=== PATIENT | female | born 1965 | race Caucasian/White ===

== ENCOUNTER 2020-02-21 12:40 | Emergency (ER) | payer OTHER ==
[2020-02-21 12:47] VITALS: BP 117/75
--- NOTE | 2020-02-21 13:06 | ED Physician Documentation ---
History of Present Illness - Stated complaint Stated Complaint: SORE THROAT - Chief complaint Chief Complaint: Heent - History obtained from History obtained from: Patient - History of Present Illness Timing: Prior to arrival, How many days ago (3) Pain level max: 0 Pain level now: 0 - Additonal information Additional information: 54-year-old female presents to the emergency department with chief complaint of sore throat congestion fatigue and malaise. She reports that over the last 2 weeks she has [place] extensively [place] [facility] [place] She denies any cough or fevers. No chest pain or dyspnea. Denies loss of taste or smell. No vomiting or diarrhea. She has no tonsillar exudate. She has normal phonation and swallow. She reports that she is extremely stressed and just wants to make sure she is okay. She denies any pertinent past medical history. She is an occasional tobacco or vape user. Denies alcohol. Review of Systems Constitutional: denies: Fever, Chills Nose: reports: Congestion, Sinus pressure / pain. denies: Foreign Body Throat: reports: Sore throat. denies: Swollen tonsils Cardiac: denies: Chest pain / pressure, Palpitations Respiratory: denies: Dyspnea, Cough, Hemoptysis, Wheezing GI: denies: Abdominal Pain : denies: Dysuria, Frequency, Hesitancy Skin: denies: Rash, Lesions Musculoskeletal: denies: Neck pain, Back pain PD PAST MEDICAL HISTORY - Past Medical History Past Medical History: Yes Cardiovascular: None Respiratory: None Neuro: None Endocrine/Autoimmune: None GI: None [employer]: None : None HEENT: None Psych: None Musculoskeletal: None Derm: None - Past Surgical History Past Surgical History: No - Allergies Allergies/Adverse Reactions: Allergies Allergy/AdvReac Type Severity Reaction Status Date / Time No Known Drug Allergies Allergy Verified 02/21/20 12:47 - Social History Does the pt smoke?: No Smoking Status: Never smoker - Immunizations Immunizations are current?: Yes PD ED PE NORMAL - General General: Alert and oriented X 3, No acute distress - HEENT HEENT: Atraumatic, PERRL, EOMI, Ears normal, Moist mucous membranes, Pharynx benign, Dentition benign - Neck Neck: Supple, no meningeal sign, No bony TTP, No adenopathy, No JVD - Cardiac Cardiac: RRR, No murmur - Respiratory Respiratory: No respiratory distress, Clear bilaterally - Abdomen Abdomen: Normal bowel sounds, Non tender - Back Back: No CVA TTP, No spinal TTP - Derm Derm: Normal color, Warm and dry, No rash - Extremities Extremities: No deformity - Neuro Neuro: Alert and oriented X 3, registered nurse ambulatory 2-12 intact, No motor deficit Results - Vitals Vitals: Vital Signs - 24 hr 02/21/20 12:44 Temperature 36.6 C Heart Rate 67 Respiratory 18 Rate Blood Pressure 117/75 O2 Saturation 99 Oxygen O2 Source Room air PD MEDICAL DECISION MAKING - ED course Complexity details: d/w patient ED course: 54-year-old female with a history of recent extensive travel to [facility] [place] with 3 days of sinus pressure, congestion, feeling of fatigue and malaise. - Her exam is entirely benign. She has no fever and her vital signs are normal. She has no tonsillar exudate. My suspicion for strep pharyngitis is very low and will defer testing at this time. - There is no fever, purulent drainage or significant sinus tenderness. My suspicion for bacterial sinusitis is very low. I advised saline nasal spray or nasal wash to help with congestion versus an [id number] decongestant. -I discussed with patient my concern about extensive travel to an area where COVID-19 is endemic. She does not feel that she has COVID-19 but she agrees to testing. I have advised her to be in quarantine until we know these test results - Emergent return precautions discussed Departure - Departure Clinical Impression: Sore throat, Sinus congestion Instructions: ED URI Viral Comments: I suspect that your sore throat, fatigue, and sinus congestion is most likely a virus. We are testing you today for COVID-19. Please maintain quarantine until we know these results. I would also advise that you maintain distance from your mom until we know these results. If at any point you feel your symptoms are worsening, you have chest pain, develop fevers or cannot breathe and talk normally then please return to the emergency department
== END 2020-02-21 13:41 | disposition home or self-care (01) ==
LOC: ED 12:40
DX: J02.9 Acute pharyngitis, unspecified (principal); R09.81 Nasal congestion; Z20.828 Contact with and (suspected) exposure to other viral communicable diseases
CPT/HCPCS: 99283; 99284